=== PATIENT | female | born 1965 | race Caucasian/White ===

== ENCOUNTER 2016-05-11 17:56 | Emergency (ER) | payer BC ==
--- NOTE | ~2016-05-11 | CR173 ---
[facility]. [facility] A Service of [facility] RADIOLOGY TEXT RESULTS PATIENT: SAUNDRA FIERRO LOCATION: SED : 61 UNIT #: [id number] AGE: [address]: CARLOS ENRIQUE ARZOLA SEX: F ORDER DR: [id number] [place] [id number] E MR#: [id number] Acc #: [id number] NAME: SAUNDRA FIERRO : 1965 SEX: F STUDY DATE/TIME: 05/11/2016 17:48 UNIT: SED ROOM: STUDY DESCRIPTION: CR Knee 3 Views Rt Attending Physician: Carlos Enrique Arzola Ordering Physician: Sofia Chun Pa-C Primary Care Physician: Kadeem Zapata Aprn MEDICAL IMAGING REPORT This report is preliminary unless electronic signature is present. EXAM Right knee 3 views FINDINGS 50-year-old female with right knee pain, fell last week. 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 No joint effusion. No fracture or dislocation. Mild anterior knee soft tissue swelling and edema could represent soft tissue contusion. IMPRESSION 1. Mild anterior knee soft tissue swelling and edema may reflect soft tissue contusion. 2. Moderate degenerative arthropathy of the knee predominantly involving the medial and patellofemoral compartments. Dictated by... Yan Joyce M.D. THIS IS AN ELECTRONICALLY VERIFIED REPORT Yan Joyce M.D. at 05/12/2016 7:29 AM DEBBIE/maureen TD: 05/12/2016 06:33 JOB #: [id number] MEDICAL IMAGING REPORT Page 1 of 1
--- NOTE | ~2016-05-11 | CR21 ---
[facility]. [facility] A Service [facility] RADIOLOGY TEXT RESULTS PATIENT: SAUNDRA FIERRO LOCATION: SED : 61 UNIT #: [id number] AGE: [address]: CARLOS ENRIQUE ARZOLA SEX: F ORDER DR: [id number] [place] [id number] E MR#: [id number] Acc #: [id number] NAME: SAUNDRA FIERRO : 1965 SEX: F STUDY DATE/TIME: 05/11/2016 17:48 UNIT: SED ROOM: STUDY DESCRIPTION: CR Ankle Min 3 Views Rt Attending Physician: Carlos Enrique Arzola Ordering Physician: Sofia Chun Pa-C Primary Care Physician: Kadeem Zapata Aprn MEDICAL IMAGING REPORT This report is preliminary unless electronic signature is present. EXAM Right ankle 3 views HISTORY Medial ankle pain, fell last week. COMPARISON 09/10/2015. FINDINGS 3 views of the right ankle demonstrate mild soft tissue swelling along the medial and anterior ankle. Hypertrophic changes noted off the medial malleolus and distal fibula probably related to old trauma and appears unchanged from prior studies. Mild asymmetry of the ankle mortise but appears unchanged from prior exams. Talus, subtalar joint unremarkable. Small plantar calcaneal spur. IMPRESSION Soft tissue swelling about the ankle. No acute fracture or dislocation. Dictated by... Yan Joyce M.D. THIS IS AN ELECTRONICALLY VERIFIED REPORT Yan Joyce M.D. at 05/12/2016 7:29 AM DEBBIE/maureen TD: 05/12/2016 06:37 JOB #: [id number] MEDICAL IMAGING REPORT [facility] A Service [facility] RADIOLOGY TEXT RESULTS PATIENT: SAUNDRA FIERRO LOCATION: SED : 61 UNIT #: [id number] AGE: [address]: CARLOS ENRIQUE ARZOLA SEX: F ORDER DR: Page 1 of 1
[~2016-05-11 17:56] MED LIST: ABILIFY2 MG PO; ACID REDUCER150 MG PO; ACYCLOVIR PO; ADVAIR 2501 DISK W/D PO; ALAVERT10 MG PO; ALBUTEROL MININEB NEB; ALBUTEROL17 GM INH; ALPRAZOLAM PO; BACTROBAN15 GM; BAYER ASPIRIN325 M1 PO; BUPROPION HCL150 M3 PO; CETIRIZINE HCL10 MG PO; CIPRO PO; CLARITIN10 MG PO; CLEOCIN PO; CLINORIL PO; DELTASONE20 MG PO; DITROPAN5 MG DOB; DITROPAN5 MG PO; DUEXIS 800-26.1 EACH PO; DUONEB 2.5-0.5 M3 ML NEB; ERYTHROMYCIN500 MG PO; FLEXERIL PO; FLEXERIL10 M1 PO; FLEXERIL10 MG PO; IBUPROFEN PO; IBUPROFEN800 MG PO; LITHIUM CARBON300 M1 PO; LITHIUM CARBON300 M2 PO; LORTAB 5-325 M1 EACH PO; MEDROL PO; MOBIC PO; MONTELUKAST SOD10 MG PO; NEURONTIN300 MG PO; OMEPRAZOLE20 M2 PO; PAXIL; PHENERGAN VC W120 M1 PO; PHENERGAN25 M1 PO; PHENERGAN25 MG PO; PORTLAND PHARMACY; PREDNISONE PO; PROAIR HFA8.5 GM INH; PROTONIX PO; PROVENTAL; PROVENTIL0.83 MG/ML INH; RANITIDINE HCL150 M1 PO; ROBITUSSIN-DM120 ML PO; ROPINIROLE HCL1 MG PO; SINGULAIR PO; SYMBICORT INH; SYNTHROID PO; THYROID PO; TUSSIN MAX15 MG/5 M1 PO; ULTRAM PO; VICODIN 5/500 T1 TAB PO; VISTARIL PO; ZANTAC150 MG PO; ZITHROMAX PO; ZOLOFT PO; [UNRECOGNIZED DRUG - REMARK]
== END 2016-05-11 18:31 | disposition home or self-care (01) ==
LOC: SED 17:56
DX: S93.401A Sprain of unspecified ligament of right ankle, initial encounter (principal); F31.9 Bipolar disorder, unspecified; J45.909 Unspecified asthma, uncomplicated; K21.9 Gastro-esophageal reflux disease without esophagitis; Z88.8 Allergy status to other drugs, medicaments and biological substances; Z88.2 Allergy status to sulfonamides; Z88.0 Allergy status to penicillin; Z79.899 Other long term (current) drug therapy; W01.0XXA Fall on same level from slipping, tripping and stumbling without subsequent striking against object, initial encounter; Y92.9 Unspecified place or not applicable
CPT/HCPCS: 29515; 29530; 73562; 73610; 99284